=== PATIENT | male | born 1985 | race Caucasian/White ===

== ENCOUNTER 2017-08-05 09:27 | Emergency (ER) | payer SELFPAY ==
[~2017-08-05] VITALS: Ht 177.8 cm; Wt 74.8 kg
== END 2017-08-05 09:50 | disposition home or self-care (01) ==
LOC: ED 09:27
DX: Z00.8 Encounter for other general examination (principal)

== ENCOUNTER 2017-09-21 01:41 | Emergency (ER) | payer SELFPAY ==
[~2017-09-21] VITALS: Ht 177.8 cm; Wt 74.8 kg
[2017-09-21] MEDS ORDERED: CEPHALEXIN500 MG PO (02:05)
[2017-09-21] MEDS ORDERED: BACTRIM DS TAB1 EACH PO (02:05)
[2017-09-21] MEDS ORDERED: TRAMADOL HCL50 MG PO (02:05)
== END 2017-09-21 02:19 | disposition home or self-care (01) ==
LOC: ED 01:41
DX: L03.211 Cellulitis of face (principal)
CPT/HCPCS: 87070; 87077; 87186; 99283